=== PATIENT | female | born 1955 | race African-American/Black ===

== ENCOUNTER → 2020-11-16 | Outpatient (CLI) | payer MEDICARE, MEDICAID ==
[~2020-11-16] MED LIST: FERR324T4 PO; FURO40TA5 PO; GABA-290 PO; PROT40 PO; QUET50TA PO; RIFA550T PO; SPIR100T5 PO
== END | disposition home or self-care (01) ==
LOC: LAB 07:01
PROVIDERS: ATTEND Internal Medicine Gastroenterology
DX: Z01.812 Encounter for preprocedural laboratory examination (principal); Z20.822 Contact with and (suspected) exposure to COVID-19
CPT/HCPCS: 87426

== ENCOUNTER → 2020-11-16 | Day surgery (SDC) | payer MEDICARE, MEDICAID ==
[~2020-11-16] VITALS: Ht 168.9 cm; Wt 61.2 kg
[~2020-11-16] MED LIST changes: +ACETAMINOPHEN 500MG TABLET PO NR; +HYDROMORPHONE HCL/PF 2MG/ML CPJ IV ONE; +LACTATED RINGERS 1,000 ML IV SCH; +LIDOCAINE HCL 1% 20ML VIAL (Pyxis) INJ ONE; +ONDANSETRON HCL 4MG/2ML INJ IV NR; +ONDANSETRON HCL 4MG/2ML INJ ONE; +PROPOFOL 200MG/20ML VIAL IV ONE
[2020-11-16 11:00] VITALS: BP 133/95
== END | disposition home or self-care (01) ==
LOC: OR 08:03
PROVIDERS: ATTEND Internal Medicine Gastroenterology
DX: K70.30 Alcoholic cirrhosis of liver without ascites (principal); I85.01 Esophageal varices with bleeding; D50.0 Iron deficiency anemia secondary to blood loss (chronic); K76.6 Portal hypertension; F41.9 Anxiety disorder, unspecified; M10.9 Gout, unspecified; D64.9 Anemia, unspecified; Z79.899 Other long term (current) drug therapy; Z98.890 Other specified postprocedural states
CPT/HCPCS: 43244; 93005; J1170; J2405; J2704; J3490